=== PATIENT | male | born 1940 | race Two or more races ===

== ENCOUNTER → 2016-05-15 | Outpatient (CLI) | payer MEDICARE, BC ==
--- NOTE | 2016-05-15 15:48 | RADRPT ---
PROCEDURE: Right knee radiographs. CLINICAL INDICATION: Right knee pain. TECHNIQUE: Three views. Weight bearing. Frontal, lateral, and patellar view. COMPARISON: No prior studies are available for comparison. FINDINGS: There is no fracture or dislocation. The soft tissues are normal. There are degenerative changes with small osteophytes arising from the medial and patellofemoral luh nt compartment margins. There is no joint space narrowing or deformity. There is no lytic or blastic lesion. There is no radiopaque foreign body. IMPRESSION: 1. Mild degenerative change of the right knee. 2. No acute abnormality. 3. No change from 07/13/2015. RPTAT: QQ .Jayro Hong MD, MD Date Time Electronically viewed and signed by .Jayro Hong MD, on 05/15/2016 15:47 .R/
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
--- NOTE | 2016-05-16 04:17 | HKNOTE ---
DATE OF SERVICE: 05/15/2016 Dr. Mekhi Da Silva [id number] [address] Da Sliva, Thank you for referring Earl Rodriguez. Mr. Rodriguez complains of pain in his right knee. He has rela tively mild arthritis of the knee. He had a cortisone injection less than 6 months ago, which gave him excellent relief of his pain and is still active. Although he does not need a knee replacement at this time, he asked numerous questions about knee re placement and we spent considerable time discussing it. He will return as necessary for further cortisone injections. Enclosed is a copy of my office notes for your records. Thank you for your confidence in referring him to my care. With warmest regards, Dictated By: CARRIE WADDELL/SUSAN Conf#: [id number] DID#: [id number]
== END | disposition home or self-care (01) ==
LOC: HKI 13:22
DX: M17.11 Unilateral primary osteoarthritis, right knee (principal); I10 Essential (primary) hypertension; Z79.82 Long term (current) use of aspirin
CPT/HCPCS: 73562; G0463

== ENCOUNTER → 2016-06-05 | Outpatient (CLI) | payer MEDICARE, BC ==
--- NOTE | 2016-06-06 04:29 | HKNOTE ---
DATE OF SERVICE: 06/05/2016 The patient returns to further discuss his right knee. He is scheduled to have a shoulder surgery b jackie Greenberg. The patient wants to know if a cortisone injection might benefit him. He does not get any serious p ain in his knee, but he does have "discomfort every day after he works out." Physical examination of his knee is unchanged. X-rays were again reviewed, and these show moderate degenerative arthritis of his knee. Had a long discussion. The patient agreed to have a cortisone injection. Under sterile conditions, given injection of 2 mL of Kenalog and 6 mL of 2% lidocaine into the knee, and he will be seen again as necessary. Dictated By: CARRIE WADDELL/SUSAN Conf#: [id number] DID#: [id number]
== END | disposition home or self-care (01) ==
LOC: HKI 13:38
DX: M17.11 Unilateral primary osteoarthritis, right knee (principal)
CPT/HCPCS: 20610; G0463; J3301

== ENCOUNTER → 2016-08-28 | Outpatient (CLI) | payer MEDICARE, BC ==
--- NOTE | 2016-08-29 02:24 | HKNOTE ---
DATE OF SERVICE: The patient comes in to tell me that the cortisone injection into his knee helped him a great deal a nd he is not having any problems at this time! PHYSICAL EXAMINATION: RIGHT KNEE: The right knee shows normal alignment. Active and passive extension is 0 degrees. Act brittaney and passive flexion is 135 degrees. The medial and lateral collateral ligaments and cruciate li gaments are intact. Ashley test is negative. There is no effusion, tenderness, scarring, or cysts . 3+ crepitus in the knee and under the patella. The patella tracks normally. There is no tendern ess on the articular surface of the patella or in the patellar groove. The Q angle is normal. IMAGING: X-rays of his right knee obtained at the last visit show severe arthritis of the patellofe moral joint and moderate osteoarthritis of the medial compartment. MANAGEMENT: He comes in to further discuss what is entailed and involved in knee replacement surger y. I advised him that I did not think he needed it yet and may be able to go another few years with out it. No cortisone was given into his knee today, since he does not have any pain. He will be se en again as necessary. Dictated By: CARRIE WADDELL/SUSAN Conf#: [id number] DID#: [id number]
== END | disposition home or self-care (01) ==
LOC: HKI 13:36
DX: M17.11 Unilateral primary osteoarthritis, right knee (principal)
CPT/HCPCS: G0463

== ENCOUNTER → 2016-09-16 | Outpatient (CLI) | payer MEDICARE, BC ==
--- NOTE | 2016-09-17 01:02 | HKNOTE ---
DATE OF SERVICE: 09/16/2016 The patient comes in requesting repeat cortisone injection into his right knee. The last injection given in August helped him a great deal. PHYSICAL EXAMINATION: Clinically, degenerative osteoarthritis of the right knee. MANAGEMENT: Under sterile conditions, given injection of 2 mL of Kenalog and 5 mL of 2% lidocaine i nto the knee. He will be seen again as necessary. Dictated By: CARRIE WADDELL/SUSAN Conf#: [id number] DID#: [id number]
== END | disposition home or self-care (01) ==
LOC: HKI 14:30
DX: M17.11 Unilateral primary osteoarthritis, right knee (principal)
CPT/HCPCS: 20610; G0463

== ENCOUNTER → 2016-09-30 | Outpatient (CLI) | payer MEDICARE, BC ==
--- NOTE | 2016-10-01 07:41 | HKNOTE ---
DATE OF SERVICE: 09/30/2016 04/19/2016. Patient comes in complaining of the pain in his right knee. Cortisone injection gave h im a limited amount of improvement for a limited time and wants to know if he can add viscosupplemen tation. PHYSICAL EXAMINATION: His knee is unchanged since the last visit. X-rays of his right knee show th at ____x-rays of the right knee from the last visit were reviewed and these show that there is moder ate arthritis of the medial compartment of the knee ("half ____on a scale of 1 to 10"). MANAGEMENT: We spent considerable time discussing supplementation and risks and benefits and downsi de ____. It is too soon after his last cortisone injection for him to have another injection into t he knee at this time. He will return perhaps in a month's time for injection of Monovisc into his k nee ____. He wanted to know about knee replacement. Note that he comes in with a friend of his who is an MARIO pacheco, and they tried to steer the conversation towards ____. The patient wanted no details about knee replacement surgery. I advised him that in my estimation, i t would be a minimum of 3 and possibly 4 years or more before he needs to have a right knee replacem ent operation. He will return in a couple of weeks' time for an injection of Monovisc into the knee . Dictated By: CARRIE AWDDELL/SUASN Conf#: [id number] DID#: [id number]
== END | disposition home or self-care (01) ==
LOC: HKI 14:55
DX: M17.11 Unilateral primary osteoarthritis, right knee (principal); M25.561 Pain in right knee
CPT/HCPCS: 20610; G0463

== ENCOUNTER → 2016-11-18 | Outpatient (CLI) | payer MEDICARE, BC ==
--- NOTE | 2016-11-19 04:55 | HKNOTE ---
DATE OF SERVICE: 11/18/2016 SUBJECTIVE: The patient comes in requesting an injection into his right knee. He continues to have pain. PHYSICAL EXAMINATION: VITAL SIGNS: Normal. EXAMINATION THE RIGHT KNEE: No change since the last visit. MANAGEMENT: Under sterile condition, he is given an injection of Monovisc into the right knee. Dictated By: Alvin Burns MD /sonia/lina /Document#: [id number]
== END | disposition home or self-care (01) ==
LOC: HKI 13:47
DX: M25.561 Pain in right knee (principal); M17.11 Unilateral primary osteoarthritis, right knee

== ENCOUNTER → 2016-12-23 | Outpatient (CLI) | payer MEDICARE, BC ==
--- NOTE | 2017-01-09 12:29 | HKNOTE ---
DATE OF SERVICE: 12/23/2016 HISTORY OF MAIN COMPLAINT: The patient complains that the Monovisc injection given into his right knee at the last visit did not give him any relief. He comes back requesting that I give him a cortisone injection. His knee pain continues to be an important factor in his life. He is not a candidate for knee replacement. He has tried hruy-ywh-kpwzzwy anti-inflammatory medications. MANAGEMENT: Under sterile conditions, he was given an injection of 2 cc of Kenalog and 6 cc of 2 percent lidocaine into the knee. He will be seen again as necessary for further evaluation and treatment. DIAGNOSIS: 1. Degenerative osteoarthritis of the right knee. 2. Spinal stenosis. Dictated By: Alvin Burns MD /sonia/tresa /Document#: [id number]
== END | disposition home or self-care (01) ==
LOC: HKI 14:13
DX: M17.11 Unilateral primary osteoarthritis, right knee (principal); M48.00 Spinal stenosis, site unspecified
CPT/HCPCS: 20610; G0463